=== PATIENT | female | born 1960 | race Caucasian/White ===

== ENCOUNTER 2018-07-06 06:02 | Day surgery (SDC) | payer OTHER ==
[2018-07-06] VITALS (14 sets, daily range): BP systolic 101–122; BP diastolic 67–84; PULSE 72–86; RESP 15–20; Ht 170.2 cm; Wt 87.5 kg
[~2018-07-06] VITALS: Ht 170.2 cm; Wt 87.5 kg
[~2018-07-06 06:02] MED LIST: CEFAZOLIN 2 GM/50 ML (PMX) 50 ML IVPB ONE; SOD CHLORIDE 0.9% 1,000 ML IV SCH
[2018-07-06] MEDS ORDERED: LOSA25TA12 PO (06:57)
--- NOTE | 2018-07-06 07:28 | PREAC ---
Date/Time of Note Date/Time of Note DATE: 07/06/18 TIME: 07:27 Anesthesia Eval and Record Evaluation Time Pre-Procedure Interview DATE: 07/06/18 TIME: 07:27 Age 57 Sex female NPO: 8 hrs Preoperative diagnosis gallstones Planned procedure lap rowdy Past Medical History Past Medical History: Includes Cardio: HTN GI: Obesity Surgery & Anesthesia Issues No known issue Meds Anticoagulation: No Beta Masood within 24 hr: No Reason Beta Masood not given: Pt. not on B-Masood Reported Medications Losartan Potassium* (Losartan Potassium*) 25 Mg Tablet, 25 MG PO DAILY, TAB 07/06/18 Current Medications Sodium Chloride 1,000 ml @ 75 mls/hr [id number] IV Last administered on 07/06/18at 07:10; Admin Dose 75 MLS/HR; Start 07/06/18 at 06:00; Stop 07/06/18 at 19:19 Meds reviewed: Yes Allergies Coded Allergies: No Known Drug Allergies (Unverified Allergy, Unknown, 07/06/18) Allergies Reviewed: Yes Labs/Studies Labs Reviewed: Reviewed by anesthesiologist Result Diagram: 07/06/18 0641 Laboratory Tests 07/06/18 06:41 test: Negative Studies: ECG Pre-procedure Exam Airway: Adequate mouth opening, Adequate thyromental dist Mallampati: Mallampati II Teeth: Normal Lung: Normal Heart: Normal ASA Physical Status ASA physical status: 2 Emergency: None Planned Anesthetic General/MAC: ETT Nerve block: TAP (bilateral) Pre-operative Attestations Prior to commencing anesthesia and surgery, the patient was re-evaluated, there was verification of: *The patient's identity *The results of appropriate recent lab work and preoperative vital signs *The above evaluation not changing prior to induction *Anesthetic plan, risk benefits, alternative and complications discussed with patient/family; questions answered; patient/family understands, accepts and wishes to proceed. SHAKIR CHAVEZ July 06, 2018 07:28
[2018-07-06] MEDS ORDERED: ALBUTEROL 0.083% (NEB) 2.5 MG/3 ML AMP HHN PRN (07:30)
[2018-07-06] MEDS ORDERED: MEPERIDINE 25 MG INJ IV PRN (07:30)
[2018-07-06] MEDS ORDERED: DIPHENHYDRAMINE 50 MG INJ IV PRN (07:30)
[2018-07-06] MEDS ORDERED: FENTAnyl 50 MCG/ML VIAL IV PRN ×3 (07:30)
[2018-07-06] MEDS ORDERED: ONDANSETRON 4 MG INJ IV PRN (07:30)
[2018-07-06] MEDS ORDERED: HYDROmorphONE 1 MG/5 ML IV SYRINGE IV PRN ×3 (07:30)
[2018-07-06] MEDS ORDERED: METOCLOPRAMIDE 10 MG INJ IV PRN (07:30)
[2018-07-06] MEDS ORDERED: FENTAnyl 50 MCG/ML VIAL ONE (07:51)
[2018-07-06] MEDS ORDERED: ROPIVACAINE 0.5 % 30 ML VIAL ONE (07:51)
[2018-07-06] MEDS ORDERED: PHENYLephrine (100 MCG/ML) 10ML SYG ONE (08:15)
[2018-07-06] MEDS ORDERED: SUCCINYLCHOLINE CHLORIDE 100 MG/5 ML SYG IV ONE (08:40)
[2018-07-06] MEDS ORDERED: PROPOFOL 20 ML ONE (08:40)
[2018-07-06] MEDS ORDERED: SUGAMMADEX SODIUM 200 MG/2 ML VIAL IV ONE (08:40)
[2018-07-06] MEDS ORDERED: CEFAZOLIN 1 GM INJ ONE (08:40)
[2018-07-06] MEDS ORDERED: LIDOCAINE 100 MG SYRINGE ONE (08:40)
[2018-07-06] MEDS ORDERED: ROCURONIUM 50 MG INJ ONE (08:40)
--- NOTE | 2018-07-06 08:53 | OPR ---
Date/Time of Note Date/Time of Note DATE: 07/06/18 TIME: 08:46 Operative Report Procedure Date: July 06, 2018 Preoperative Diagnosis symptomatic gallstones Postoperative Diagnosis same Operation/Procedure Performed laparoscopic cholecystectomy Surgeon see signature line Cloth Sander none Anesthesia Type: general Estimated Blood Loss: 10 - 50 ml's Transfusion none Specimen gallbladder Grafts/Implants none Complications none Pt Condition Post Procedure: stable Indications This is a 57-year-old female with some tender gallstones. She required surgical excision of her gallbladder. Risks alternatives benefits and personal were discussed the patient. Patient expressed understanding and consents to the operation. Procedure Description Patient is taken to the OR and prepped and draped in usual sterile fashion. Surgical time was performed. IV antibiotics given. Infraumbilical incision was made with a 15 blade transversely. Dissection with cautery skin onto the fascia. The fascia was grasped with Columbus's and divided with curved Lassiter scissors. 0 Vicryl U stitch was placed into the fascia. Hsieh trocar was introduced. Pneumoperitoneum was established. Midepigastric 12 mm optical trochars were placed under direct visualization. Right upper quadrant upper flank 5 mm optical trochars were placed under direct visualization. Upon initial inspection there is adhesions to the gallbladder and the gallbladder appeared distended. Adhesions were taken down bluntly. The gallbladder. Also intrahepatic. Initial dome down approach was taken to mobilize the gallbladder. The gallbladder was then grasped with the fundus and retracted and lateral cephalad direction. [place] graspers were used to dissect out the cystic duct and cystic artery. The critical view was established. Cystic duct is divided to close proximal to distal and the divisions performed laparoscopic scissors. Cystic artery was divided to close proximal to distal and the divisions performed laparoscopic scissors. The gallbladder is taken of the gallbladder bed. Good hemostasis status. The gallbladder is retrieved Endo Catch bag. All ports removed under direct visualization. 0 Vicryl is tied down. Skin is closed with skin kaia. A tap block was provided by the anesthesiologist. Dry dressings were applied. Edwin LEONG July 06, 2018 08:53
[2018-07-06] MEDS ORDERED: HYDROCODONE/APAP (5/325) TAB PO ONE (09:00)
--- NOTE | 2018-07-06 12:44 | PAC ---
Date/Time of Note Date/Time of Note DATE: 07/06/18 TIME: 12:44 Post-Anesthesia Notes Post-Anesthesia Note Last documented vital signs Vital Signs Date Temp Pulse Resp B/P (MAP) Pulse Ox O2 O2 Flow FiO2 Time Delivery Rate 07/06/18 97.4 76 18 104/70 96 Room Air 11:35 (81) 07/06/18 2.0 09:11 Activity: WNL Respiratory function: WNL Cardiovascular function: WNL Mental status: Baseline Pain reasonably controlled: Yes Hydration appropriate: Yes Nausea/Vomiting absent: Yes SHAKIR CHAVEZ July 06, 2018 12:44
--- NOTE | 2018-07-07 12:41 | RADRPT ---
Vent Rate: 63 bpm RR Interval: 956 msec [place] Interval: 162 msec QRS Duration: 92 msec QT Interval: 411 msec QTC Interval: 420 msec P-R-T [place]: 54 - 80 - 50 degrees Sinus rhythm...normal P axis, V-rate 50- 99 Electronically Signed By: Akash Schofield
== END 2018-07-06 10:55 | disposition home or self-care (01) ==
LOC: SDS 06:02
PROVIDERS: ATTEND Surgery
DX: K80.10 Calculus of gallbladder with chronic cholecystitis without obstruction (principal); I10 Essential (primary) hypertension; E66.9 Obesity, unspecified; I34.0 Nonrheumatic mitral (valve) insufficiency
CPT/HCPCS: 47562; 71045; 80053; 85025; 85610; 85730; 88304; 93005; J0690; J1170; J2001; J2175; J2370; J2405; J2795; J3010; Z7512; Z7610

== ENCOUNTER 2018-07-07 07:59 | Observation (INO) | payer OTHER ==
[~2018-07-07] VITALS: Ht 170.2 cm; Wt 92.0 kg
[~2018-07-07 07:59] MED LIST changes: -CEFAZOLIN 2 GM/50 ML (PMX) 50 ML IVPB ONE; +LOSA25TA12 PO; -SOD CHLORIDE 0.9% 1,000 ML IV SCH
[2018-07-07] MEDS ORDERED: HYDROmorphONE 1 MG/ML SYG IV STA ×3 (08:12→10:52)
[2018-07-07] MEDS ORDERED: ONDANSETRON 4 MG INJ IV STA ×3 (08:12→10:52)
[2018-07-07] MEDS ORDERED: SOD CHLORIDE 0.9% 1,000 ML IV STA (08:12)
[2018-07-07] MEDS ORDERED: IOHEXOL 300MG/ML 150 ML BTL ONE (09:28)
[2018-07-07] MEDS ORDERED: SOD CHLORIDE 0.9% 100 ML ONE (09:28)
[2018-07-07] MEDS ORDERED: SOD CHLORIDE 0.9% 1,000 ML IV SCH (12:23)
--- NOTE | 2018-07-07 12:28 | ERD ---
ER Documentation Chief Complaint Chief Complaint Complains of post op abdominal pain since this am HPI This is a 57-year-old female who had her gallbladder removed yesterday by Dr. rodriguez, the patient is complaining of epigastric pain similar to her gallbladder pain onset this morning. The pain is severe and occasionally radiates around to the right back. She is nauseated but no vomiting diarrhea no fever no chest pain or shortness of breath ROS All systems reviewed and are negative except as per history of present illness. Medications Home Meds Reported Medications Losartan Potassium* (Losartan Potassium*) 25 Mg Tablet, 25 MG PO DAILY, TAB 07/06/18 Allergies Allergies: Coded Allergies: No Known Drug Allergies (Verified Allergy, Unknown, 07/07/18) PMhx/Soc History of Surgery: Yes (tubal ligation 20 years ago, GALLBLADDER REMOVAL ) Anesthesia Reaction: No Hx Neurological Disorder: No Hx Respiratory Disorders: No Hx Cardiac Disorders: Yes (htn) Hx Psychiatric Problems: No Hx Miscellaneous Medical Probl: No Hx Alcohol Use: No Hx Substance Use: No Hx Tobacco Use: No Smoking Status: Never smoker FmHx Family History: No coronary disease Physical Exam Vitals Vital Signs Date Temp Pulse Resp B/P (MAP) Pulse Ox O2 O2 Flow FiO2 Time Delivery Rate 07/07/18 98.0 96 18 128/86 98 Room Air 2.0 10:00 (100) 07/07/18 99 20 145/110 96 Room Air 08:08 (122) 07/07/18 97.2 58 20 167/93 100 08:04 (117) Physical Exam Const: Well-developed, well-nourished Head: Atraumatic, normocephalic Eyes: Normal Conjunctiva, PERRLA, EOMI, normal sclera, no nystagmus ENT: Normal External Ears, Nose and Mouth, moist mucus membranes. Neck: Full range of motion. No meningismus, no lymphadenopathy. Resp: Clear to auscultation bilaterally, no wheezing, rhonchi, rales Cardio: Regular rate and rhythm, no murmurs, S1 S2 present Abd: Soft, moderate right upper quadrant tenderness, non distended. Normal bowel sounds, no guarding or rebound, no pulsitile abdominal masses or bruits Skin: No petechiae or rashes, no ecchymosis , no maculopapular rash Back: No midline or flank tenderness Ext: No cyanosis, or edema, FROM x 4, normal inspection, neurovascularly intact x 4 Neur: Awake and alert, STR 5/5 x 4, sensation intact x 4, no focal findings, cerebellum intact Psych: Normal Mood and Affect Result Diagram: 07/07/18 0822 07/07/18 0822 Results 24 hrs Laboratory Tests Test 07/07/18 08:22 White Blood Count 11.9 10^3/ul Red Blood Count 4.90 10^6/ul Hemoglobin 14.5 g/dl Hematocrit 45.7 % Mean Corpuscular Volume 93.3 fl Mean Corpuscular Hemoglobin 29.6 pg Mean Corpuscular Hemoglobin Concent 31.7 g/dl Red Cell Distribution Width 13.8 % Platelet Count 354 10^3/UL Mean Platelet Volume 9.9 fl Immature Granulocytes % 0.400 % Neutrophils % 73.7 % Lymphocytes % 16.8 % Monocytes % 8.6 % Eosinophils % 0.3 % Basophils % 0.2 % Nucleated Red Blood Cells % 0.0 /100WBC Immature Granulocytes # 0.050 10^3/ul Neutrophils # 8.8 10^3/ul Lymphocytes # 2.0 10^3/ul Monocytes # 1.0 10^3/ul Eosinophils # 0.0 10^3/ul Basophils # 0.0 10^3/ul Nucleated Red Blood Cells # 0.0 10^3/ul Sodium Level 141 mmol/L Potassium Level 4.7 mmol/L Chloride Level 101 mmol/L Carbon Dioxide Level 29 mmol/L Anion Gap 11 Blood Urea Nitrogen 15 mg/dl Creatinine 0.88 mg/dl Est Glomerular Filtrat Rate mL/min > 60 mL/min Glucose Level 158 mg/dl Calcium Level 9.9 mg/dl Total Bilirubin 0.7 mg/dl Direct Bilirubin 0.00 mg/dl Indirect Bilirubin 0.7 mg/dl Aspartate Amino Transf (AST/SGOT) 95 IU/L Alanine Aminotransferase (ALT/SGPT) 57 IU/L Alkaline Phosphatase 85 IU/L Total Protein 8.7 g/dl Albumin 4.6 g/dl Globulin 4.10 g/dl Albumin/Globulin Ratio 1.12 Lipase 68 U/L Current Medications Medications Dose Sig/Nicki Start Time Status Last (Trade) Ordered Route PRN Stop Time Admin Dose Reason Admin Sodium 1,000 ml @ Q1H STAT 07/07/18 DC 07/07/18 Chloride 1,000 mls/hr IV 08:12 08:18 07/07/18 09:11 1 mg ONCE STAT 07/07/18 DC 07/07/18 Hydromorphone IV 08:12 08:18 HCl 07/07/18 08:13 (Dilaudid) Ondansetron 4 mg ONCE STAT 07/07/18 DC 07/07/18 HCl (Zofran IV 08:12 08:18 Inj) 07/07/18 08:13 1 mg ONCE STAT 07/07/18 DC 07/07/18 Hydromorphone IV 08:44 08:55 HCl 07/07/18 08:45 (Dilaudid) Ondansetron 4 mg ONCE STAT 07/07/18 DC 07/07/18 HCl (Zofran IV 08:44 08:55 Inj) 07/07/18 08:45 IV Flush 10 ml STK-MED 07/07/18 DC 07/07/18 (NS 10 ml) ONCE .ROUTE 09:28 09:42 07/07/18 09:29 Sodium 100 ml @ ud STK-MED 07/07/18 DC 07/07/18 Chloride ONCE .ROUTE 09:28 09:42 07/07/18 09:29 Iohexol 150 ml STK-MED 07/07/18 DC 07/07/18 (Omnipaque ONCE .ROUTE 09:28 09:42 300mg/ ml) 07/07/18 09:29 1 mg ONCE STAT 07/07/18 DC 07/07/18 Hydromorphone IV 10:52 12:11 HCl 07/07/18 10:53 (Dilaudid) Ondansetron 4 mg ONCE STAT 07/07/18 DC 07/07/18 HCl (Zofran IV 10:52 12:12 Inj) 07/07/18 10:53 Procedures/MDM DIAGNOSTIC IMAGING REPORT Patient: JOANNE DOUGHERTY : 1960 Age: 57 Sex: F MR #: [id number] DOS: 07/07/18811 Ordering MD: SLIME ELENA DO Location: E/R Room/Bed: PROCEDURE: CT ABDOMEN AND PELVIS WITH IV CONTRAST. CLINICAL INDICATION: Status post gallbladder removal. Mid abdominal pain TECHNIQUE: CT scan of the abdomen and pelvis with contrast was performed on a multidetector high-resolution CT scanner following the use of IV contrast. 100 cc Omnipaque-300 was administered. Coronal and sagittal reformatted images were obtained from the axial source images. Images were reviewed on a high-resolution PACS workstation. The total exam CTDI equals 21.6 mGy and the total exam DLP equals 1410.7 mGy-cm. One or more of the following dose reduction techniques were used: Automated exposure control. Adjustment of the mA and/or kV according to patient size. Use of iterative reconstruction technique. DICOM images are available. COMPARISON: None FINDINGS: CT abdomen: Bilateral lower lobe atelectasis. Heart size is enlarged. No significant pericardial effusion. Hepatic morphology is within normal limits. No gross contour deforming masses. Status post cholecystectomy. 4.2 cm fluid collection is noted within the gallbladder fossa, with some hyperdense material probably postoperative seroma or hematoma. There is mild perihepatic fluid and several foci of of intra- abdominal free air.. The spleen and pancreas are within normal limits. Both adrenal glands are within normal limits. Both kidneys are in normal anatomic position. No evidence of obstruction or hydronephrosis. No gross renal/ureteric calculi. Visualized GI tract demonstrate normal caliber loops of small large bowel. No obstruction. Stool filled loops of large bowel suggestive of constipation. The appendix is within normal limits. Midline abdominal wall skin kaia and subcutaneous fat stranding and air is identified, consistent with postsurgical changes. Mild atherosclerotic calcification aorta. No significant retroperitoneal lymphadenopathy. CT pelvis: The bladder demonstrate mild thickening of the pandey. Minimal adjacent fat stranding. Uterus is identified with intrauterine device. Small amount of free f luid within the pelvis. The rectosigmoid colon demonstrates stool. No significant pelvic lymphadenopathy. The visualized osseous structures demonstrate multilevel degenerative disease of the lumbosacral spine. Endplate sclerotic changes are noted. IMPRESSION: 1. Status post cholecystectomy. A 4.2 cm fluid collection within the gallbladder fossa with some hyperdense material probably postoperative seroma or hematoma. Mild perihepatic fluid and several foci of air, likely normal postsurgical changes. 2. Periumbilical subcutaneous fatty stranding and air and midline abdominal surgical skin kaia, consistent with postsurgical changes. 3. Small amount nonspecific free fluid within the pelvis, which may be physiologic or post surgically related. If there is concern for biliary leak, recommend follow-up HIDA scan. 4. Cardiomegaly and bilateral lower lobe atelectasis. 5. No evidence of bowel obstruction. Stool filled loops of large bowel suggestive of constipation. 6. Intrauterine device in place. RPTAT: AAPP Physician Juwan Date Time Electronically viewed and signed by Jacy Rebolledo Physician on 07/07/2018 10:11 JL/ CC: SLIME ELENA DO [id number] Patient is having intractable pain I will admit her to Dr. Bard dillon. Spoke with the general surgeon advised me to do so Departure Diagnosis: Primary Impression: Intractable abdominal pain Additional Impression: Postoperative pain Condition: Stable SLIME ELENA DO July 07, 2018 12:28
[2018-07-07] MEDS ORDERED: ONDANSETRON 4 MG INJ IV PRN ×2 (12:30→14:30)
[2018-07-07] MEDS ORDERED: ACETAMINOPHEN 325 MG TAB PO PRN (12:30)
[2018-07-07 14:00] VITALS: BP 144/88; PULSE 88; RESP 16
[2018-07-07] MEDS ORDERED: morphine SULFATE/PF (2 MG/2 ML) SYG IV PRN (14:30)
[2018-07-07] MEDS ORDERED: ACETAMINOPHEN 500 MG TAB PO PRN (14:30)
[2018-07-07] MEDS ORDERED: D5W-0.45 NACL + KCL 20 MEQ 1,000 ML IV SCH (14:30)
[2018-07-07] MEDS: PANTOPRAZOLE (EC) 40 MG TAB PO SCH (15:18)
[2018-07-07] MEDS: KETOROLAC 30 MG INJ IV SCH ×2 (15:18→22:09)
[2018-07-07] MEDS: DEXTROSE 5%-0.45% NACL 1,000 ML IV SCH (15:19)
[2018-07-07 18:19] VITALS: Ht 170.2 cm; Wt 92.0 kg
[2018-07-07] MEDS ORDERED: PENDING SANTYL ORDER FOR WOUND CARE XX PRN (19:00)
[2018-07-07 20:00] VITALS: BP 119/84; PULSE 94; RESP 18
[2018-07-08 02:00] VITALS: BP 144/84; PULSE 88; RESP 18
[2018-07-08] MEDS: KETOROLAC 30 MG INJ IV SCH ×4 (03:35→21:19)
[2018-07-08] MEDS: PANTOPRAZOLE (EC) 40 MG TAB PO SCH (06:25)
[2018-07-08] MEDS: DEXTROSE 5%-0.45% NACL 1,000 ML IV SCH ×2 (07:10→08:56)
[2018-07-08 07:56] VITALS: BP 126/76; PULSE 84; RESP 18
--- NOTE | 2018-07-08 12:38 | PN ---
Date/Time of Note Date/Time of Note DATE: 07/08/18 TIME: 12:37 Assessment/Plan VTE Prophylaxis Risk score (from Nsg)>0 risk: 1 SCD applied (from Nsg): Yes Pharmacological prophylaxis: LMWH Lines/Catheters IV Catheter Type (from Nrsg): Peripheral IV Assessment/Plan Hospital Course 1) abdominal pain - monitor - consider imaging if pain continues Result Diagram: 07/08/18 0526 07/08/18 0526 Results 24hrs Laboratory Tests Test 07/08/18 05:26 White Blood Count 6.6 # Red Blood Count 4.15 L Hemoglobin 12.6 Hematocrit 38.8 Mean Corpuscular Volume 93.5 Mean Corpuscular Hemoglobin 30.4 Mean Corpuscular Hemoglobin Concent 32.5 Red Cell Distribution Width 13.6 Platelet Count 207 # Mean Platelet Volume 11.0 H Immature Granulocytes % 0.300 Neutrophils % Segmented Neutrophils % (Manual) 70 Band Neutrophils % (Manual) 9 H Lymphocytes % Lymphocytes % (Manual) 15 Monocytes % Monocytes % (Manual) 6 Eosinophils % Basophils % Nucleated Red Blood Cells % 0.0 Immature Granulocytes # 0.020 Neutrophils # Neutrophils # (Manual) 4.7 Band Neutrophils # 0.5 Lymphocytes (Manual) 0.9 Lymphocytes # Monocytes # Monocytes # (Manual) 0.3 Eosinophils # Basophils # Nucleated Red Blood Cells # Platelet Estimate NORMAL Sodium Level 141 Potassium Level 4.4 Chloride Level 106 Carbon Dioxide Level 30 Anion Gap 5 Blood Urea Nitrogen 13 Creatinine 0.93 Est Glomerular Filtrat Rate mL/min > 60 Glucose Level 97 # Calcium Level 8.8 Total Bilirubin 0.7 Direct Bilirubin 0.00 Indirect Bilirubin 0.7 Aspartate Amino Transf (AST/SGOT) 57 H Alanine Aminotransferase (ALT/SGPT) 45 Alkaline Phosphatase 54 Total Protein 6.7 # Albumin 3.5 # Globulin 3.20 Albumin/Globulin Ratio 1.09 Subjective 24 Hr Interval Summary Free Text/Dictation Patient still have abdominal pain Exam/Review of Systems Exam Vitals Vital Signs Date Temp Pulse Resp B/P (MAP) Pulse Ox O2 O2 Flow FiO2 Time Delivery Rate 07/08/18 98.6 84 18 126/76 96 07:56 (93) 07/07/18 Room Air 14:00 07/07/18 2.0 13:00 Intake and Output 07/07/18 07/07/18 07/08/18 1414:59 22:59 06:59 IntakeIntake Total 1100 ml 600 ml 1400 ml BalanceBalance 1100 ml 600 ml 1400 ml Constitutional: well developed Head: normocephalic, atraumatic Neck: supple Respiratory: diminished breath sounds Cardiovascular: regular rate and rhythm Gastrointestinal: soft, tender Extremities: normal pulses Results Results 24hrs Laboratory Tests Test 07/08/18 05:26 White Blood Count 6.6 # Red Blood Count 4.15 L Hemoglobin 12.6 Hematocrit 38.8 Mean Corpuscular Volume 93.5 Mean Corpuscular Hemoglobin 30.4 Mean Corpuscular Hemoglobin Concent 32.5 Red Cell Distribution Width 13.6 Platelet Count 207 # Mean Platelet Volume 11.0 H Immature Granulocytes % 0.300 Neutrophils % Segmented Neutrophils % (Manual) 70 Band Neutrophils % (Manual) 9 H Lymphocytes % Lymphocytes % (Manual) 15 Monocytes % Monocytes % (Manual) 6 Eosinophils % Basophils % Nucleated Red Blood Cells % 0.0 Immature Granulocytes # 0.020 Neutrophils # Neutrophils # (Manual) 4.7 Band Neutrophils # 0.5 Lymphocytes (Manual) 0.9 Lymphocytes # Monocytes # Monocytes # (Manual) 0.3 Eosinophils # Basophils # Nucleated Red Blood Cells # Platelet Estimate NORMAL Sodium Level 141 Potassium Level 4.4 Chloride Level 106 Carbon Dioxide Level 30 Anion Gap 5 Blood Urea Nitrogen 13 Creatinine 0.93 Est Glomerular Filtrat Rate mL/min > 60 Glucose Level 97 # Calcium Level 8.8 Total Bilirubin 0.7 Direct Bilirubin 0.00 Indirect Bilirubin 0.7 Aspartate Amino Transf (AST/SGOT) 57 H Alanine Aminotransferase (ALT/SGPT) 45 Alkaline Phosphatase 54 Total Protein 6.7 # Albumin 3.5 # Globulin 3.20 Albumin/Globulin Ratio 1.09 Medications Medication Current Medications Acetaminophen (Tylenol Tab) 500 mg Q4H PRN PO MILD PAIN(1-3)OR ELEVATED TEMP; Start 07/07/18 at 14:30 Ketorolac Tromethamine (Toradol) 30 mg Q6H IV Last administered on 07/08/18at 08:56; Admin Dose 30 MG; Start 07/07/18 at 14:30; Stop 07/10/18 at 14:29 Pantoprazole (Protonix Tab) 40 mg DAILY@06 PO Last administered on 07/08/18at 06:25; Admin Dose 40 MG; Start 07/07/18 at 06:00 Morphine Sulfate (morphine SULFATE (PF)) 4 mg Q4H PRN IV PAIN LEVEL 7-10; Start 07/07/18 at 14:30 Ondansetron HCl (Zofran Inj) 4 mg Q4H PRN IV NAUSEA AND/OR VOMITING; Start 07/07/18 at 14:30 Dextrose/Sodium Chloride 1,000 ml @ 60 mls/hr [id number] IV Last administered on 07/08/18at 08:56; Admin Dose 60 MLS/HR; Start 07/07/18 at 14:30 Miscellaneous Information (Pending Santyl Order For Wound Care) This patient quijano... PRN PRN XX WOUND CARE; Start 07/07/18 at 19:00 BAYRON SEARS July 08, 2018 12:38
[2018-07-08 14:00] VITALS: BP 123/82; PULSE 72; RESP 20
--- NOTE | 2018-07-08 19:46 | PN ---
DATE: 07/08/2018 Postop day #4 status post laparoscopic cholecystectomy done on Tuesday, 5 days ago. Then, the patien t was discharged the same day. She was okay after midnight then gradually started getting severe dayne n in right upper quadrant extending to the right shoulder area and she tried to tolerate the pain and continued for 48 hours, but she could not tolerate anymore, so she referred to the emergency room an d was admitted with impression of intractable postop abdominal pain. CT scan was performed and other evaluation was done. The patient was started on Toradol 30 mg IV q.6h. around the clock assuming th e pain to be muscular origin. SUBJECTIVE: Today, the patient feels much better, has tolerated diet. Has passed gas. No nausea, n o vomiting. He has got out of bed, walked a little bit around. OBJECTIVE: GENERAL: Awake, alert, oriented. VITAL SIGNS: Temperature maximum 99.1, heart rate 88, respiration 18, blood pressure 126/76, saturat ion 96% on room air. LABORATORY DATA: WBC 6600 with 70% segmented, which is normal differential, hemoglobin 12.6, hematoc rit 38.8. Chemistry: Sodium, potassium normal. BUN and creatinine normal. Bilirubin has been norm al since admission. AST was 95, slightly elevated, gradually coming down, today is 57, still is high . ALT is 57, which is normal. Alkaline phosphatase is 54, which is normal. PHYSICAL EXAMINATION: GENERAL: Awake, alert, oriented. VITAL SIGNS: Temperature maximum 99.1, heart rate 88, respiration 18, blood pressure 126/76, saturat ion 96% on room air. HEART: Regular. LUNGS: Clear. ABDOMEN: Soft. No guarding. No rigidity. ASSESSMENT AND PLAN: The patient is postop laparoscopic cholecystectomy, postop day #4. The patient has come back due to intractable right upper quadrant abdominal pain. The cause of it is not clear. It is possible to be of muscular origin. In any case, the patient has tolerated diet and has been walking around. Leukocytes are normal. Bilirubin is not high, slight increase in liver enzymes is c oming down toward normal. I think from surgical point of view, the patient can be discharged home wh enever it is okay with the admitting medical service. Dictated By: DMITRI MOLINA MD PS/DOM Conf#: [id number] DID#: [id number] CC: MUKESH CIFUENTES MD;*EndCC*
[2018-07-08 20:48] VITALS: BP 111/71; PULSE 67; RESP 18
[2018-07-09] MEDS: DEXTROSE 5%-0.45% NACL 1,000 ML IV SCH ×2 (01:44→16:30)
[2018-07-09 02:40] VITALS: BP 140/80; PULSE 67; RESP 18
[2018-07-09] MEDS: KETOROLAC 30 MG INJ IV SCH ×3 (02:47→14:19)
[2018-07-09] MEDS: PANTOPRAZOLE (EC) 40 MG TAB PO SCH (07:03)
[2018-07-09 08:14] VITALS: BP 123/79; PULSE 73; RESP 17
--- NOTE | 2018-07-09 12:34 | PN ---
Date/Time of Note Date/Time of Note DATE: 07/09/18 TIME: 12:33 Assessment/Plan VTE Prophylaxis Risk score (from Ns)>0 risk: 3 SCD applied (from Ns): Yes Pharmacological prophylaxis: LMWH Lines/Catheters IV Catheter Type (from Nrsg): Peripheral IV Urinary Cath still in place: No Assessment/Plan Hospital Course 1) abdominal pain - monitor - consider imaging if pain continues Result Diagram: 07/09/1852307/09/18 0524 Results 24hrs Laboratory Tests Test 07/09/18 05:24 White Blood Count 5.9 Red Blood Count 4.06 L Hemoglobin 12.2 Hematocrit 37.2 Mean Corpuscular Volume 91.6 Mean Corpuscular Hemoglobin 30.0 Mean Corpuscular Hemoglobin Concent 32.8 Red Cell Distribution Width 13.4 Platelet Count 265 # Mean Platelet Volume 10.2 Immature Granulocytes % 0.300 Neutrophils % 60.1 Lymphocytes % 26.5 Monocytes % 10.4 Eosinophils % 2.4 Basophils % 0.3 Nucleated Red Blood Cells % 0.0 Immature Granulocytes # 0.020 Neutrophils # 3.5 Lymphocytes # 1.6 Monocytes # 0.6 Eosinophils # 0.1 Basophils # 0.0 Nucleated Red Blood Cells # 0.0 Sodium Level 141 Potassium Level 4.2 Chloride Level 107 Carbon Dioxide Level 28 Anion Gap 6 Blood Urea Nitrogen 18 Creatinine 0.88 Est Glomerular Filtrat Rate mL/min > 60 Glucose Level 92 Calcium Level 8.8 Total Bilirubin 0.6 Direct Bilirubin 0.00 Indirect Bilirubin 0.6 Aspartate Amino Transf (AST/SGOT) 36 Alanine Aminotransferase (ALT/SGPT) 29 Alkaline Phosphatase 55 Total Protein 6.6 Albumin 3.4 Globulin 3.20 Albumin/Globulin Ratio 1.06 Subjective 24 Hr Interval Summary Free Text/Dictation Patient has no complaints Exam/Review of Systems Exam Vitals Vital Signs Date Temp Pulse Resp B/P (MAP) Pulse Ox O2 O2 Flow FiO2 Time Delivery Rate 07/09/18 98.2 73 17 123/79 95 Room Air 08:14 (94) 07/07/18 2.0 13:00 Intake and Output 07/08/18 07/08/18 07/09/18 1515:00 23:00 07:00 IntakeIntake Total 690 ml 990 ml 745 ml BalanceBalance 690 ml 990 ml 745 ml Constitutional: well developed Head: normocephalic, atraumatic Neck: supple Respiratory: clear to auscultation Cardiovascular: regular rate and rhythm Gastrointestinal: soft, non-tender Extremities: normal pulses Results Results 24hrs Laboratory Tests Test 07/09/18 05:24 White Blood Count 5.9 Red Blood Count 4.06 L Hemoglobin 12.2 Hematocrit 37.2 Mean Corpuscular Volume 91.6 Mean Corpuscular Hemoglobin 30.0 Mean Corpuscular Hemoglobin Concent 32.8 Red Cell Distribution Width 13.4 Platelet Count 265 # Mean Platelet Volume 10.2 Immature Granulocytes % 0.300 Neutrophils % 60.1 Lymphocytes % 26.5 Monocytes % 10.4 Eosinophils % 2.4 Basophils % 0.3 Nucleated Red Blood Cells % 0.0 Immature Granulocytes # 0.020 Neutrophils # 3.5 Lymphocytes # 1.6 Monocytes # 0.6 Eosinophils # 0.1 Basophils # 0.0 Nucleated Red Blood Cells # 0.0 Sodium Level 141 Potassium Level 4.2 Chloride Level 107 Carbon Dioxide Level 28 Anion Gap 6 Blood Urea Nitrogen 18 Creatinine 0.88 Est Glomerular Filtrat Rate mL/min > 60 Glucose Level 92 Calcium Level 8.8 Total Bilirubin 0.6 Direct Bilirubin 0.00 Indirect Bilirubin 0.6 Aspartate Amino Transf (AST/SGOT) 36 Alanine Aminotransferase (ALT/SGPT) 29 Alkaline Phosphatase 55 Total Protein 6.6 Albumin 3.4 Globulin 3.20 Albumin/Globulin Ratio 1.06 Medications Medication Current Medications Acetaminophen (Tylenol Tab) 500 mg Q4H PRN PO MILD PAIN(1-3)OR ELEVATED TEMP; Start 07/07/18 at 14:30 Ketorolac Tromethamine (Toradol) 30 mg Q6H IV Last administered on 07/09/18at 08:53; Admin Dose 30 MG; Start 07/07/18 at 14:30; Stop 07/10/18 at 14:29 Pantoprazole (Protonix Tab) 40 mg DAILY@06 PO Last administered on 07/09/18at 07:03; Admin Dose 40 MG; Start 07/07/18 at 06:00 Morphine Sulfate (morphine SULFATE (PF)) 4 mg Q4H PRN IV PAIN LEVEL 7-10; Start 07/07/18 at 14:30 Ondansetron HCl (Zofran Inj) 4 mg Q4H PRN IV NAUSEA AND/OR VOMITING; Start 07/07/18 at 14:30 Dextrose/Sodium Chloride 1,000 ml @ 60 mls/hr [id number] IV Last administered on 07/09/18at 01:44; Admin Dose 60 MLS/HR; Start 07/07/18 at 14:30 Miscellaneous Information [facility] This patient quijano... PRN PRN XX WOUND CARE; Start 07/07/18 at 19:00 BAYRON SEARS July 09, 2018 12:34
[2018-07-09 14:02] VITALS: BP 117/79; PULSE 60; RESP 17
== END 2018-07-09 18:00 | disposition home or self-care (01) ==
LOC: E/R 07:59 → PP2 12:25
PROVIDERS: ADMIT Internal Medicine; ATTEND Internal Medicine
DX: G89.18 Other acute postprocedural pain (principal); R10.9 Unspecified abdominal pain; I10 Essential (primary) hypertension
CPT/HCPCS: 74177; 80053; 83690; 85025; 96361; 96374; 96375; 96376; J1170; J1885; J2405; J7030; J7042; Q9967; Z7500; Z7502; Z7610; G0378